=== PATIENT | female | born 1995 | race Caucasian/White ===

== ENCOUNTER 2021-06-02 03:54 | Emergency (ER) | payer OTHER ==
[2021-06-02 04:03] VITALS: BP 117/68; PULSE 66; TEMP 97.8; BMI 23.7
[2021-06-02 05:32] LABS: ALBUMIN 3.2 g/dl (3.4-5.0); BLOOD UREA NITROGEN 6.9 mg/dL (7-18); CALCIUM 8.2 mg/dL (8.5-10.1)
[2021-06-02 05:33] LABS: BASO % 0.9 % (0-2.0); EOS % 5.1 % (0-4.5); HEMATOCRIT 34.7 % (32.4-45.2); HEMOGLOBIN 11.7 GM/dL (10.7-15.3); LYMPH % 28.6 % (8-40); MCH 25.6 pg (25.7-33.7); MCHC 33.7 g/dl (32.0-36.0); MEAN CELL VOLUME 75.9 fl (80-96); MEAN PLT VOLUME 7.9 fl (7.5-11.1); MONO % 5.3 % (3.8-10.2); NEUT % 60.1 % (42.8-82.8); PLATELET COUNT 436 10^3/uL (134-434); RBC 4.57 M/mm3 (3.60-5.2); RDW 13.5 % (11.6-15.6); WHITE BLOOD COUNT 6.2 K/mm3 (4.0-10.0)
[2021-06-02 05:35] LABS: CREATININE 0.6 mg/dL (0.55-1.3)
[2021-06-02 05:37] LABS: BILIRUBIN,TOTAL 0.3 mg/dL (0.2-1); TOT PROT 6.5 g/dl (6.4-8.2)
== END 2021-06-02 07:19 | disposition home or self-care (01) ==
LOC: FER 03:54
DX: R07.89 Other chest pain (principal)
CPT/HCPCS: 36415; 71275-TC; 80053; 85025; 85379; 93005; 99285-25; Q9967

== ENCOUNTER 2023-09-12 13:05 | Emergency (ER) | payer OTHER ==
[2023-09-12 13:18] VITALS: BP 122/90; PULSE 71; RESP 14; TEMP 98.4; BMI 24.0
== END 2023-09-12 13:42 | disposition home or self-care (01) ==
LOC: FER 13:05
DX: R23.3 Spontaneous ecchymoses (principal)
CPT/HCPCS: 99283-25

== ENCOUNTER 2023-09-29 19:49 | Emergency (ER) | payer OTHER ==
[2023-09-29 20:21] VITALS: BP 131/75; PULSE 78; RESP 17; TEMP 98.3; BMI 25.8
== END 2023-09-29 20:31 | disposition home or self-care (01) ==
LOC: FER 19:49
DX: M79.10 Myalgia, unspecified site (principal); R53.83 Other fatigue
CPT/HCPCS: 99283-25